=== PATIENT | male | born 1995 | race Hispanic/Latino ===

== ENCOUNTER 2017-06-11 13:57 | Emergency (ER) | payer SELFPAY ==
[~2017-06-11] VITALS: Ht 185.4 cm; Wt 96.6 kg
[2017-06-11 16:02] LABS: HEMATOCRIT 43.5 % (38.0-50.0); MCH 31.2 PG (29.0-34.0); MCHC 34.5 G/DL (30.0-36.0); MCV 90.4 FL (86-99); PLATELET COUNT 240 K/uL (156-360); RBC DIS.WIDTH-CV 11.7 % (11.8-14.6); RBC DIS.WIDTH-SD 38.9 % (39-53); RED BLOOD COUNT 4.81 M/uL (4.00-5.50); WHITE BLOOD COUNT 5.8 K/uL (4.1-10.2)
[2017-06-11 16:11] LABS: CHLORIDE 106 mEq/L (99-109)
[2017-06-11 16:12] LABS: SODIUM 141 mEq/L (136-147)
[2017-06-11 16:13] LABS: GLUCOSE 98 mg/dL (70-99)
[2017-06-11 16:17] LABS: CREATININE 0.8 mg/dL (0.6-1.3)
[2017-06-11 16:18] LABS: UREA NITROGEN (BUN) 14 mg/dL (9-23)
[2017-06-11 16:26] LABS: TROP-I INTERPRETATION NEGATIVE; TROPONIN-I < 0.01 ng/mL (0.0-0.30)
[2017-06-11 16:27] LABS: GFR ESTIMATE (CALCULATED) > 59 mL/min/ (58.99-99999)
[2017-06-11 17:05] LABS: ALBUMIN 3.8 g/dL (3.2-4.8)
[2017-06-11 17:07] LABS: TOTAL PROTEIN 7.5 g/dL (6.4-8.3)
[2017-06-11 17:09] LABS: TOTAL BILIRUBIN 0.4 mg/dL (0.0-1.0)
[2017-06-11 17:10] LABS: ALKALINE PHOSPHATASE 62 IU/L (3-129)
[2017-06-11 17:13] LABS: ALT (GPT) 20 IU/L (3-49); AST (GOT) 19 IU/L (2-34); DIRECT BILIRUBIN 0.1 mg/dL (0.0-0.3)
[2017-06-11 17:17] LABS: MONOSPOT (MONONUCLEOSIS SEROL) NEGATIVE
[2017-06-11] MEDS ORDERED: VENTOLIN HFA18 GM IH (18:28)
[2017-06-11] MEDS ORDERED: LEVAQUIN500 MG PO (18:28)
[2017-06-11] MEDS ORDERED: MOTRIN800 MG PO (18:28)
[2017-06-11] MEDS ORDERED: PREDNISONE20 MG PO (18:28)
[2017-06-11 19:03] VITALS: BP 132/71
== END 2017-06-11 19:06 | disposition home or self-care (01) ==
LOC: EME 13:57
PROVIDERS: Physician Assistant
DX: R59.0 Localized enlarged lymph nodes (principal); J02.9 Acute pharyngitis, unspecified; J18.0 Bronchopneumonia, unspecified organism
CPT/HCPCS: 71046; 80048; 80076; 84484; 85027; 86308; 86664; 86665; 87502; 87651 90; 93005; 94640; 94664; 99281; 99284; J7512